=== PATIENT | male | born 1965 | race African-American/Black ===

== ENCOUNTER 2019-08-30 13:13 | Emergency (ER) | payer MEDICAID ==
[~2019-08-30] VITALS: Ht 175.3 cm; Wt 78.0 kg
[2019-08-30] MEDS ORDERED: TETANUS, DIPHTHERIA, PERTUSSIS VAC/PF 0.5ML (>7YR OLD) IM ONE (14:30)
[2019-08-30] MEDS ORDERED: BACITRACIN 15GM TUBE TOP ONE (14:30)
[2019-08-30] MEDS ORDERED: IBUPROFEN 600MG TABLET PO ONE (14:30)
[2019-08-30 16:31] VITALS: BP 115/77
== END 2019-08-30 16:35 | disposition home or self-care (01) ==
LOC: ER 13:13
DX: S70.02XA Contusion of left hip, initial encounter (principal); S70.312A Abrasion, left thigh, initial encounter; S60.511A Abrasion of right hand, initial encounter; V28.0XXA Motorcycle driver injured in noncollision transport accident in nontraffic accident, initial encounter; Y93.89 Activity, other specified; Y92.488 Other paved roadways as the place of occurrence of the external cause
CPT/HCPCS: 73502; 90471; 90715; 99283